=== PATIENT | male | born 1970 | race Two or more races ===

== ENCOUNTER 2017-06-08 20:59 | Emergency (ER) | payer OTHER ==
[~2017-06-08] VITALS: Ht 172.7 cm; Wt 79.4 kg
[~2017-06-08 20:59] MED LIST: LEVAQUIN750 MG PO
== END 2017-06-09 04:22 | disposition home or self-care (01) ==
LOC: ER 20:59 → CPU-OBS 21:00 → ER 21:00
DX: R42 Dizziness and giddiness (principal)
CPT/HCPCS: G0378; G0379; 70450; 93005; 82805; 36600

== ENCOUNTER 2019-12-17 11:28 | Emergency (ER) | payer OTHER ==
[~2019-12-17] VITALS: Ht 172.7 cm; Wt 79.4 kg
[2019-12-17] MEDS ORDERED: ZITHROMAX500 MG PO (16:03)
[2019-12-17] MEDS ORDERED: TUSNEL LIQUID178 ML PO (16:03)
== END 2019-12-17 16:20 | disposition home or self-care (01) ==
LOC: ER 11:28
DX: B34.9 Viral infection, unspecified (principal); B96.0 Mycoplasma pneumoniae [M. pneumoniae] as the cause of diseases classified elsewhere; Z03.818 Encounter for observation for suspected exposure to other biological agents ruled out; R06.02 Shortness of breath